=== PATIENT | female | born 1950 | race Two or more races ===

== ENCOUNTER 2023-09-27 19:34 | Inpatient (IN) | payer MEDICARE, MEDICAID ==
[~2023-09-27] VITALS: Ht 160 cm; Wt 50.0 kg
[2023-09-27 20:09] LABS: Basophils # (auto) 0.1 10 ^3/uL (0-0.2); Eosinophils # (auto) 0 10 ^3/uL (0-0.8); Lymphocytes # (auto) 1.3 10 ^3/uL (0.4-5.4); Lymphocytes % (auto) 10.9 % (10.0-50.0); Monocytes # (auto) 0.9 10 ^3/uL (0-1.3); Red Cell Distribution Width 16.8 % (11.8-14.3)
[2023-09-27 20:11] LABS: Basophils % (auto) 0.9 % (0.0-2.0); Eosinophils % (auto) 0.2 % (0.0-7.0); Hematocrit 35.9 % (36.0-46.0); Hemoglobin 11.7 g/dL (12.2-16.2); Mean Corpuscular Hemoglobin 27.6 pg (28.0-32.0); Mean Corpuscular Hgb Conc. 32.5 g/dL (32.0-36.0); Mean Corpuscular Volume 84.9 fL (80.0-100.0); Monocytes % (auto) 7.8 % (0.0-12.0); Neutrophils # (auto) 9.7 10 ^3/uL (1.6-8.6); Neutrophils % (auto) 80.2 % (37.0-80.0); Red Blood Cells 4.23 10^6/uL (4.0-5.20); White Blood Cell 12.2 10^3/uL (4.4-10.8)
[2023-09-27 20:15] VITALS: PULSE 98; RESP 18; O2SAT 97
[2023-09-27 20:26] LABS: INR 1.13 (0.9-1.15); Partial Thromboplastin Time 30.8 SEC (24.5-34.5); Prothrombin Time 11.8 sec (9.3-11.8)
[2023-09-27 20:28] LABS: Albumin 3.6 g/dL (3.2-4.8); Alkaline Phosphatase 84 U/L (46-116); Anion Gap 11 (5-15); Aspartate Aminotransferase 17 U/L (13-40); BUN/Creatinine Ratio 12.4 (10.0-20.0); Blood Urea Nitrogen 12 mg/dL (9-23); Calcium 8.8 mg/dL (8.7-10.4); Carbon Dioxide 24 mmol/L (20-30); Chloride 105 mmol/L (98-107); Glucose 123 mg/dL (74-106); Magnesium 1.6 mg/dL (1.6-2.6); Potassium 3.8 mmol/L (3.5-5.1); Sodium 140 mmol/L (136-145)
[2023-09-27 20:29] LABS: Bilirubin, Total 0.4 mg/dL (0.2-1.0); Total Protein 6.1 g/dL (5.7-8.2)
[2023-09-27] MEDS ORDERED: ACETAMINOPHEN 325 MG TAB PO ONE (20:30)
[2023-09-27 20:32] LABS: Alanine Aminotransferase < 9 U/L (7-40)
[2023-09-27] MEDS ORDERED: ONDANSETRON HCL 4 MG/2 ML VIAL IV ONE (20:45)
[2023-09-27] MEDS ORDERED: MORPHINE SULFATE 4 MG/ML SYR/VIAL IV ONE (20:45)
[2023-09-27] MEDS ORDERED: IBUPROFEN 600 MG TAB PO ONE (22:45)
[2023-09-28] MEDS ORDERED: MORPHINE SULFATE 4 MG/ML SYR/VIAL IV ONE (02:30)
[2023-09-28] MEDS ORDERED: ASPirin 325 MG TAB PO ONE (02:30)
[2023-09-28] MEDS ORDERED: ENOXAPARIN SOD 60 MG/0.6 ML SYRINGE SC ONE (02:30)
[2023-09-28] MEDS ORDERED: ONDANSETRON HCL 4 MG/2 ML VIAL IV ONE (02:30)
[2023-09-28 08:42] VITALS: PULSE 80; RESP 16; O2SAT 99
[2023-09-28] MEDS ORDERED: HYDR-4297 PO (09:40)
[2023-09-28] MEDS ORDERED: PANT1INJ3 PO (09:40)
[2023-09-28] MEDS ORDERED: FERR325T20 PO (09:40)
[2023-09-28] MEDS ORDERED: folic acid PO (09:40)
[2023-09-28] MEDS ORDERED: DIVA250T4 PO (09:42)
[2023-09-28] MEDS ORDERED: ACET-1882 PO (09:42)
[2023-09-28] MEDS ORDERED: MORPHINE SULFATE INJ 2 MG/ml SYRG IV PRN (10:00)
[2023-09-28] MEDS ORDERED: NITROGLYCERIN 0.4 MG SL TAB SL PRN (10:00)
[2023-09-28] MEDS ORDERED: ATORVASTATIN 20 MG TAB PO ONE ×2 (11:00→22:00)
[2023-09-28 11:28] LABS: Basophils # (auto) 0.1 10 ^3/uL (0-0.2); Basophils % (auto) 1.2 % (0.0-2.0); Eosinophils # (auto) 0.2 10 ^3/uL (0-0.8); Hematocrit 35.5 % (36.0-46.0); Monocytes # (auto) 0.8 10 ^3/uL (0-1.3)
[2023-09-28 11:31] LABS: Eosinophils % (auto) 1.9 % (0.0-7.0); Hemoglobin 11.3 g/dL (12.2-16.2); Lymphocytes # (auto) 1.5 10 ^3/uL (0.4-5.4); Lymphocytes % (auto) 12.5 % (10.0-50.0); Mean Corpuscular Hemoglobin 27.1 pg (28.0-32.0); Mean Corpuscular Hgb Conc. 31.9 g/dL (32.0-36.0); Mean Corpuscular Volume 85.1 fL (80.0-100.0); Monocytes % (auto) 6.8 % (0.0-12.0); Neutrophils # (auto) 9.3 10 ^3/uL (1.6-8.6); Neutrophils % (auto) 77.6 % (37.0-80.0); Red Blood Cells 4.17 10^6/uL (4.0-5.20); Red Cell Distribution Width 16.7 % (11.8-14.3)
[2023-09-28 11:48] LABS: Anion Gap 9 (5-15); Carbon Dioxide 27 mmol/L (20-30); Chloride 103 mmol/L (98-107); Potassium 3.5 mmol/L (3.5-5.1); Sodium 139 mmol/L (136-145)
[2023-09-28 11:49] LABS: Calcium 8.9 mg/dL (8.5-10.1)
[2023-09-28 11:54] LABS: BUN/Creatinine Ratio 14.6 (10.0-20.0); Blood Urea Nitrogen 15 mg/dL (9-23); Glucose 99 mg/dL (74-106)
[2023-09-28 12:32] LABS: Magnesium 1.6 mg/dL (1.6-2.6)
[2023-09-28] MEDS ORDERED: AZITHROMYCIN 500MG/ 250ML 250 ML IV SCH (14:15)
[2023-09-28] MEDS: ENOXAPARIN SOD 40 MG/0.4 ML SYRINGE SC SCH (15:41)
[2023-09-28] MEDS ORDERED: PANTOPRAZOLE 40 MG TAB PO ONE (15:45)
[2023-09-28] MEDS ORDERED: hydrALAZINE HCL 25 MG TAB PO ONE (15:45)
[2023-09-28 16:02] LABS: Triglycerides 80 mg/dL (< 150)
[2023-09-28 16:03] LABS: LDL Cholesterol 44 mg/dL (< 100)
[2023-09-28 16:04] LABS: Cholesterol 107 mg/dL (< 200); HDL Cholesterol 47 mg/dL (40-59)
[2023-09-28] MEDS ORDERED: HYDROcodone-ACET 5/325MG TAB PO PRN (16:15)
[2023-09-28] MEDS: cefTRIAXone 1GM/50ML D5W 50 ML IV SCH (17:46)
[2023-09-28 20:00] VITALS: PULSE 95; RESP 16; O2SAT 95
[2023-09-28] MEDS: DOXYCYCLINE 100 MG TAB/CAP PO SCH (22:10)
[2023-09-28] MEDS: hydrALAZINE HCL 25 MG TAB PO SCH (22:11)
[2023-09-29 00:26] LABS: COVID19 ANTIGEN SOFIA FIA NEGATIVE (NEGATIVE)
[2023-09-29 00:27] LABS: Rapid Influenza A Negative (Negative); Rapid Influenza B Negative (Negative)
[2023-09-29] MEDS ORDERED: ACETAMINOPHEN 325 MG TAB PO PRN (01:15)
[2023-09-29] MEDS: hydrALAZINE HCL 25 MG TAB PO SCH ×2 (05:53→15:39)
[2023-09-29 06:12] LABS: Basophils # (auto) 0.1 10 ^3/uL (0-0.2); Eosinophils # (auto) 0.4 10 ^3/uL (0-0.8); Neutrophils # (auto) 6.9 10 ^3/uL (1.6-8.6); Nucleated Red Blood Cells % 0.1 %
[2023-09-29 06:16] LABS: Basophils % (auto) 1.1 % (0.0-2.0); Eosinophils % (auto) 4.1 % (0.0-7.0); Hematocrit 32.5 % (36.0-46.0); Hemoglobin 10.5 g/dL (12.2-16.2); Lymphocytes # (auto) 2.1 10 ^3/uL (0.4-5.4); Lymphocytes % (auto) 20.6 % (10.0-50.0); Mean Corpuscular Hemoglobin 27.3 pg (28.0-32.0); Mean Corpuscular Hgb Conc. 32.3 g/dL (32.0-36.0); Mean Corpuscular Volume 84.5 fL (80.0-100.0); Monocytes # (auto) 0.7 10 ^3/uL (0-1.3); Monocytes % (auto) 6.7 % (0.0-12.0); Neutrophils % (auto) 67.5 % (37.0-80.0); Red Blood Cells 3.84 10^6/uL (4.0-5.20); Red Cell Distribution Width 16.6 % (11.8-14.3); White Blood Cell 10.2 10^3/uL (4.4-10.8)
[2023-09-29 06:24] LABS: Anion Gap 8 (5-15); Carbon Dioxide 28 mmol/L (20-30); Chloride 102 mmol/L (98-107); Potassium 3.5 mmol/L (3.5-5.1); Sodium 138 mmol/L (136-145)
[2023-09-29 06:26] LABS: Calcium 8.8 mg/dL (8.5-10.1)
[2023-09-29 06:30] LABS: Glucose 99 mg/dL (74-106); Triglycerides 77 mg/dL (< 150)
[2023-09-29 06:31] LABS: BUN/Creatinine Ratio 9.6 (10.0-20.0); Blood Urea Nitrogen 9 mg/dL (9-23); Cholesterol 99 mg/dL (< 200); LDL Cholesterol 42 mg/dL (< 100)
[2023-09-29 06:32] LABS: HDL Cholesterol 39 mg/dL (40-59)
[2023-09-29 06:44] LABS: Magnesium 1.6 mg/dL (1.6-2.6)
[2023-09-29 07:30] VITALS: PULSE 74; RESP 12; O2SAT 99
[2023-09-29] MEDS ORDERED: POTASSIUM CHL 20MEQ/100ML 100 ML IV ONE (08:45)
[2023-09-29] MEDS ORDERED: MAGNESIUM SULFATE 1GM/100ML 100 ML IV ONE (08:45)
[2023-09-29] MEDS: cefTRIAXone 1GM/50ML D5W 50 ML IV SCH (09:37)
[2023-09-29] MEDS ORDERED: PANTOPRAZOLE 40 MG TAB PO SCH (10:00)
[2023-09-29] MEDS ORDERED: ASPirin 81 mg TAB PO SCH (10:00)
[2023-09-29] MEDS ORDERED: DOXY-448 PO (10:11)
[2023-09-29] MEDS ORDERED: ASPI-325 PO (10:14)
[2023-09-29] MEDS ORDERED: ATOR40TA52 PO (10:14)
[2023-09-29] MEDS: ENOXAPARIN SOD 40 MG/0.4 ML SYRINGE SC SCH (10:35)
[2023-09-29] MEDS: DOXYCYCLINE 100 MG TAB/CAP PO SCH (10:35)
[2023-09-29 15:55] LABS: Base Excess 3.2 mmol/L (-2.0-2.0)
[2023-09-29 19:30] VITALS: BP 124/47; PULSE 78; RESP 18; TEMP 99.3; O2SAT 98
== END 2023-09-29 20:34 | disposition home or self-care (01) | DRG 177 ==
LOC: EDBD 19:34 → ER 19:34 → TELE 09-28 10:00 → UNDOADMIN 09-28 10:00 → TELE 09-29 10:10 → ER 09-29 20:33
PROVIDERS: ADMIT Internal Medicine Pulmonary Disease; ATTEND Internal Medicine Pulmonary Disease
DX: J15.69 Pneumonia due to other Gram-negative bacteria (principal); I21.4 Non-ST elevation (NSTEMI) myocardial infarction; J96.01 Acute respiratory failure with hypoxia; J15.9 Unspecified bacterial pneumonia; Z20.822 Contact with and (suspected) exposure to COVID-19; I10 Essential (primary) hypertension; Z96.642 Presence of left artificial hip joint; F03.90 Unspecified dementia, unspecified severity, without behavioral disturbance, psychotic disturbance, mood disturbance, and anxiety; Z95.0 Presence of cardiac pacemaker
CPT/HCPCS: 36415; 36600; 71045; 71275; 80048; 80053; 80061; 82805; 83036; 83605; 83735; 83880; 84443; 84484; 85025; 85379; 85610; 85730; 87040; 87081; 87426; 87804; 93005; 93306; 93970; 99291; G0378; J0696; J2405